=== PATIENT | male | born 1945 | race African-American/Black ===

== ENCOUNTER 2016-10-25 07:50 | Emergency (ER) | payer BC ==
[~2016-10-25] VITALS: Ht 172.7 cm; Wt 88.6 kg
[~2016-10-25 07:50] MED LIST: DOXA1TAB; OME20GT
[2016-10-25 08:41] VITALS: BP 126/82
== END 2016-10-25 08:55 | disposition home or self-care (01) ==
LOC: ER 07:52
DX: I10 Essential (primary) hypertension (principal)

== ENCOUNTER 2016-10-29 20:05 | Emergency (ER) | payer BC ==
[~2016-10-29] VITALS: Ht 172.7 cm; Wt 88.5 kg
[2016-10-29 20:45] VITALS: BP 160/95
[2016-10-29 21:29] LABS: Basophils # (auto) 0 uL; Basophils % (auto) 0.7 % (0.0-2.0); Eosinophils # (auto) 0.1 uL; Eosinophils % (auto) 2.1 % (0.0-7.0); Hematocrit 41.3 % (41.0-53.0); Hemoglobin 13.6 g/dL (13.5-17.5); Lymphocytes # (auto) 1.9 uL; Lymphocytes % (auto) 37.6 % (10.0-50.0); Mean Corpuscular Hemoglobin 29.9 pg (28.0-32.0); Mean Corpuscular Hgb Conc. 32.8 g/dL (32.0-36.0); Mean Platelet Volume 9.1 fL (7.4-10.4); Monocytes # (auto) 0.5 uL; Monocytes % (auto) 9.9 % (0.0-12.0); Neutrophils # (auto) 2.5 uL; Neutrophils % (auto) 49.7 % (37.0-80.0); Platelet Count (auto) 172 10^3/uL (140-450); Red Cell Distribution Width 14.3 % (11.6-16.0)
[2016-10-29 21:51] LABS: INR 1.01 (0.9-1.15); Partial Thromboplastin Time 29.3 sec (22.64-33.71); Prothrombin Time 10.4 sec (9.37-12.3)
[2016-10-29 22:12] LABS: B-Type Natriuretic Peptide 17.27 pg/mL (0-100)
[2016-10-29 22:14] LABS: Temperature: 23.5 C (20.0-25.0)
[2016-10-29 22:18] LABS: Albumin 3.3 g/dL (3.4-5.0); Calcium 8.2 mg/dL (8.5-10.1); Potassium 3.9 mmol/L (3.5-5.1)
[2016-10-29 22:20] LABS: BUN/Creatinine Ratio 16.4
[2016-10-29 22:37] LABS: Bilirubin, Total 0.2 mg/dL (0.2-1.0); Total Protein 7.3 g/dL (6.4-8.2)
== END 2016-10-30 00:40 | disposition left against medical advice (07) ==
LOC: ER 20:29
DX: I10 Essential (primary) hypertension (principal); Z53.21 Procedure and treatment not carried out due to patient leaving prior to being seen by health care provider
CPT/HCPCS: 36415; 80053; 83880; 84484; 85025; 85610; 85730; 93005

== ENCOUNTER 2022-01-02 09:14 | Emergency (ER) | payer BC ==
[~2022-01-02] VITALS: Ht 172.7 cm; Wt 81.6 kg
[2022-01-02 10:21] LABS: Basophils # (auto) 0 10 ^3/uL (0-0.2); Eosinophils # (auto) 0.1 10 ^3/uL (0-0.8); Eosinophils % (auto) 1.7 % (0.0-7.0); Hematocrit 39.9 % (41.0-53.0); Hemoglobin 13.2 g/dL (13.5-17.5); Lymphocytes % (auto) 27.1 % (10.0-50.0); Mean Corpuscular Hemoglobin 30.9 pg (28.0-32.0); Mean Corpuscular Hgb Conc. 33.1 g/dL (32.0-36.0); Mean Corpuscular Volume 93.4 fL (80.0-100.0); Monocytes # (auto) 0.2 10 ^3/uL (0-1.3); Monocytes % (auto) 6.7 % (0.0-12.0); Neutrophils # (auto) 2.4 10 ^3/uL (1.6-8.6); Neutrophils % (auto) 63.5 % (37.0-80.0); Nucleated Red Blood Cells % 0.3 %; Red Blood Cells 4.27 10^6/uL (4.5-5.90); Red Cell Distribution Width 14.4 % (11.8-14.3); White Blood Cell 3.7 10^3/uL (4.4-10.8)
[2022-01-02 10:31] LABS: Albumin 3.3 g/dL (3.4-5.0); Calcium 8.4 mg/dL (8.5-10.1); Magnesium 2.5 mg/dL (1.6-2.6); Potassium 3.8 mmol/L (3.5-5.1)
[2022-01-02 10:35] LABS: BUN/Creatinine Ratio 15.1; Bilirubin, Total 0.6 mg/dL (0.2-1.0); Total Protein 6.5 g/dL (6.4-8.2)
[2022-01-02 11:11] VITALS: BP 152/89
== END 2022-01-02 11:11 | disposition left against medical advice (07) ==
LOC: ER 09:14
DX: I10 Essential (primary) hypertension (principal); R42 Dizziness and giddiness; R00.2 Palpitations; Z53.21 Procedure and treatment not carried out due to patient leaving prior to being seen by health care provider
CPT/HCPCS: 36415; 80053; 83735; 84484; 85025; 93005